=== PATIENT | male | born 1965 | race Caucasian/White ===

== ENCOUNTER 2023-11-05 05:14 | Inpatient (IN) | payer OTHER, SELFPAY ==
[2023-10-30 08:36] VITALS: BMI 31.1
[2023-10-30 09:08] LABS: % Basophils 0.5 % (0-2); % Eosinophils 7.8 % (0-6); % Immature Granulocytes 0.4 % (0-0.5); % Lymphocytes 27.4 % (20.5-51.1); % Monocytes 7.5 % (1.7-9.3); % Neutrophils 56.4 % (42.2-75.2); Absolute Eosinophils 0.4 10^3/uL (0-0.7); Absolute Lymphocytes 1.5 10^3/uL (1.2-3.4); Absolute Monocytes 0.4 10^3/uL (0.1-0.6); Absolute Neutrophils 3.2 10^3/uL (1.4-6.5); Hematocrit 38.2 % (39.0-52.0); Hemoglobin 12.9 g/dL (13.0-18.0); Mean Corp Hgb Conc. 33.8 g/dL (33.0-37.0); Mean Corpuscular Hgb 25.9 pg (27.0-31.0); Mean Corpuscular Volume 76.7 fL (80.0-94.0); Mean Platelet Volume 9.5 fL (7.4-10.4); Nucleated Red Blood Cells % 0 % (-); Platelet Count 274 10^3/uL (130-400); Red Blood Cell Count 4.98 10^6/uL (4.70-6.10); Red Cell Dist. Width 12.2 % (11.5-14.5); White Blood Cell Count 5.6 10^3/uL (4.8-10.8)
[2023-10-30 09:17] LABS: INR 0.98; PT 12.9 Sec (11.4-14.6)
[2023-10-30 09:18] LABS: APTT 30.5 Sec (23.4-35.0)
[2023-10-30 09:40] LABS: Urine Albumin Negative (Neg - Trace); Urine Bilirubin Negative (Negative); Urine Character Clear (Clear); Urine Color Straw; Urine Glucose Negative (Negative); Urine Ketone Negative (Negative); Urine Leukocyte Negative (Negative); Urine Nitrite Negative (Negative); Urine Occult Blood Negative (Negative); Urine Specific Gravity 1.005 (<1.030); Urine Urobilinogen Negative (Neg - 1+); Urine pH 6.5 (5.0-9.0)
[2023-10-30 11:11] LABS: Glycohemoglobin (HgbA1c) 5.7 % (4.0-5.6)
[2023-10-30 11:16] LABS: ALT (SGPT) 30 U/L (0-50); AST (SGOT) 25 U/L (17-59); Albumin 4.6 g/dl (3.5-5.0); Alkaline Phosphatase 65 U/L (38-126); Blood Urea Nitrogen 13 mg/dl (9-20); Calcium 9.7 mg/dl (8.4-10.2); Carbon Dioxide 31 mmol/L (22-30); Chloride 101 mmol/L (98-107); Direct Bilirubin 0.2 mg/dl (0.0-0.4); Estimated Creatinine Clearance 85 ml/min; Glucose 85 mg/dl (70-99); Potassium 4.4 mmol/L (3.5-5.1); Sodium 143 mmol/L (135-145); Total Bilirubin 0.5 mg/dl (0.2-1.3); Total Protein 7.1 g/dl (6.3-8.2); eGFR > 60.00
--- NOTE | 2023-10-30 11:20 | CM ---
CM following for DC planning needs.
CM met w/ patient and spouse during pre-admission testing for planned CABG next wk.
Patient resides w/ spouse and 12 yo son in a private split level home w/ approx. 14 steps to enter living area.
Pt. is functionally indep. w/ ADLs without any assisted device. Pt. works full-time, drives.
Pt. has Rx plan and uses [facility] in [facility].
Reviewed pre and post op routines.
Soap, shower instructions, and Cardiac Surgery booklet provided.
Reviewed post op restrictions to include flying, driving, lifting and sternal precautions.
Discussed post op MD appointments, Cardiac Rehab and visit from CT Transitional Care RN/patient agreeable to this.
Plan is for CABG 11/04.
Anticipated DC plan is for home w/ CT Transitional Care RN.
CM to follow.
[2023-11-05] VITALS (13 sets, daily range): BP systolic 95–155; BP diastolic 56–97; BMI 30.6
[2023-11-05] MEDS: LOPRESSOR 25 MG PO (05:37)
[2023-11-05] MEDS: BACTROBAN 2% OINTMENT 1 APPLIC NASAL ×2 (05:37→20:18)
[2023-11-05] MEDS: MAGNESIUM OXIDE 500 MG PO (05:37)
[2023-11-05] MEDS: PROTONIX 40 MG PO (05:37)
--- NOTE | 2023-11-05 06:12 | W.CVOR.SURPR ---
CVOR Surgeon Immed Pre Op
-
I have examined this patient prior to performance of the scheduled procedure.
The patient's condition is unchanged from the time of the dictated/written History and
Physical and the patient is able to undergo the scheduled procedure.
CABG + CLAUS Clip
[2023-11-05 07:33] LABS: Urine Albumin Negative (Neg - Trace); Urine Bilirubin Negative (Negative); Urine Character Clear (Clear); Urine Color Yellow; Urine Glucose Negative (Negative); Urine Ketone Negative (Negative); Urine Leukocyte Negative (Negative); Urine Nitrite Negative (Negative); Urine Occult Blood Negative (Negative); Urine Specific Gravity 1.015 (<1.030); Urine Urobilinogen Negative (Neg - 1+)
[2023-11-05 07:35] LABS: ACT+ - POC 96 Seconds (82-134)
--- NOTE | 2023-11-05 09:25 | CM ---
Patient in OR today for CABG.
Antic. DC to home w/ CT Transitional Care RN.
CM to follow for DC planning needs .
[2023-11-05 09:52] LABS: ACT+ - POC 634 Seconds (82-134)
[2023-11-05 10:13] LABS: B.E. - POC 0.3 mmol/L; Glucose - POC 98 mg/dl (65-99); HCO3 - POC 25 mmol/L (21-29); Hematocrit - POC 36 % PCV (42-52); Hemodilution- POC No; Hemoglobin Calculated - POC 12.1; Ionized Calcium - POC 1.23 mmol/L (1.12-1.27); O2 Saturation %Calculated-POC 98.5 5 (92-96); PCO2 - POC 41 mmHg (35-45); PO2 - POC 116 mmHg (80-100); POC Comment PRE; Potassium - POC 3.8 mmol/L (3.6-5.0); Sodium - POC 143 mmol/L (135-145)
[2023-11-05 10:22] LABS: ACT+ - POC 463 Seconds (82-134)
[2023-11-05 10:47] LABS: ACT+ - POC 511 Seconds (82-134)
[2023-11-05 10:56] LABS: B.E. - POC 4.1 mmol/L; Glucose - POC 111 mg/dl (65-99); HCO3 - POC 29 mmol/L (21-29); Hematocrit - POC 26 % PCV (42-52); Hemodilution- POC Yes; Hemoglobin Calculated - POC 8.9; Ionized Calcium - POC 1.01 mmol/L (1.12-1.27); PCO2 - POC 46 mmHg (35-45); PO2 - POC 457 mmHg (80-100); POC Comment CPB; Potassium - POC 5.6 mmol/L (3.6-5.0); Sodium - POC 138 mmol/L (135-145); pH - POC 7.41 (7.35-7.45)
[2023-11-05 11:30] LABS: B.E. - POC 1.7 mmol/L; Glucose - POC 172 mg/dl (65-99); HCO3 - POC 27 mmol/L (21-29); Hematocrit - POC 27 % PCV (42-52); Hemodilution- POC Yes; Ionized Calcium - POC 1.03 mmol/L (1.12-1.27); O2 Saturation %Calculated-POC 98.4 5 (92-96); PCO2 - POC 42 mmHg (35-45); PO2 - POC 111 mmHg (80-100); POC Comment CPB; Potassium - POC 6.2 mmol/L (3.6-5.0); Sodium - POC 137 mmol/L (135-145); pH - POC 7.41 (7.35-7.45)
[2023-11-05 11:38] LABS: ACT+ - POC 460 Seconds (82-134)
[2023-11-05 11:56] LABS: B.E. - POC 1.8 mmol/L; Glucose - POC 145 mg/dl (65-99); HCO3 - POC 27 mmol/L (21-29); Hematocrit - POC 32 % PCV (42-52); Hemodilution- POC Yes; Hemoglobin Calculated - POC 10.7; O2 Saturation %Calculated-POC 99.8 5 (92-96); PCO2 - POC 45 mmHg (35-45); PO2 - POC 236 mmHg (80-100); POC Comment WARM; Potassium - POC 5.2 mmol/L (3.6-5.0); Sodium - POC 141 mmol/L (135-145); pH - POC 7.39 (7.35-7.45)
[2023-11-05 11:59] LABS: ACT+ - POC 104 Seconds (82-134)
[2023-11-05 12:02] LABS: B.E. - POC -0.7 mmol/L; Glucose - POC 133 mg/dl (65-99); HCO3 - POC 24 mmol/L (21-29); Hematocrit - POC 29 % PCV (42-52); Hemodilution- POC Yes; Ionized Calcium - POC 1.29 mmol/L (1.12-1.27); O2 Saturation %Calculated-POC 99.8 5 (92-96); PCO2 - POC 41 mmHg (35-45); PO2 - POC 253 mmHg (80-100); POC Comment POST; Potassium - POC 4.2 mmol/L (3.6-5.0); Sodium - POC 143 mmol/L (135-145); pH - POC 7.38 (7.35-7.45)
--- NOTE | 2023-11-05 12:32 | W.PN.CT.SURG ---
Addendum entered and electronically signed by Edmund Delgado MD 11/05/23 12:58:
Implant: AtriCure CLAUS Clip, 35mm, SN [id number]
Original Note:
CT Surgery Operative Note
-
CARDIAC SURGERY OPERATIVE REPORT
Preoperative Diagnosis: Multivessel Coronary Artery Disease with proximal LAD Involvement and LIDDING MACHINE OPERATOR to the RCA
Postoperative Diagnosis: Same
Procedure(s) Performed:
1. Standard sternotomy with aortic cannulation
2. Coronary artery bypass grafting x 4 (In situ MADERA to LAD, Ao to RSVG to high diagonal, Ao to RSVG to largest OM, Ao to left radial to distal RCA)
3. Endoscopic vein harvesting of RLE vein and the L radial artery
4. Transesophageal echocardiography
5. Placement temporary ventricular pacing wire
6. Left atrial appendage exclusion, 35 mm clip
Date of Surgery: 11/05/2023
Comorbidities:
1. Multivessel coronary artery disease involving the proximal LAD with a LIDDING MACHINE OPERATOR lesion to the RCA
2. Exertional angina in the setting of known CAD
3. Asthma
4. Anxiety/depression
5. Hyperlipidemia
6. Hypertension
7. BPH
8. Shingles
Attending Surgeon: Edmund Delgado MD, MS
Assistants: Oliver Butler MD (PGY 2) and Sommer French PA-C (present and necessary to neurosurgical physician assistant, endoscopic vein harvest, retraction, suction, exposure, suture management, and wound closure under my direction), Alyssa Sosa PA-C (Endo radial harvest)
Anesthesiology: Chris Durbin MD and Kristen Blake CRNA
Scrub and Circulating RNs: Katerina Menjivar, FLAVIO, Koby Wilcox RN
Sales Associate: Blade Whitley CCP
Anesthesia: GETA
EBL: per perfusion records
Products: None
CPB Time: 101 minutes
Aortic Cross Clamp Time: 112 minutes
Indication(s) for Procedures: This is a 58-year-old male who likely had an TN 7 years ago where he developed chest pain. More recently has been experiencing exertional chest discomfort without shortness of breath. He deftly notices that his
symptoms have progressed over the last year. Left heart cath demonstrated significant multivessel coronary disease involving a LIDDING MACHINE OPERATOR lesion to the RCA and proximal LAD disease as well as proximal circumflex disease. Due to his young age, multi
arterial grafting was offered as well as total revascularization.
Conduit(s) Quality:
MADERA -excellent/skeletonized, excellent visual flow with removal of the bulldog clamp
Left radial -excellent/good blood flow with test dosing of antegrade using an Angiocath
RSVG -excellent/uniform with minimal varicosities however there were multiple branches
Target(s) Quality:
dRCA -good/large sized vessel accommodating a 2.0 stent, was able to identify a lumen of the distal RCA, radial score was grafted to this target test dosing antegrade using a 16-gauge Angiocath was performed flowing at approximately 50 to 60 cc a
minute at a pressure of 80 mmHg. Flow probe assessment demonstrated a mean flow 40 mmHg with an excellent pulsatility index.
OM -good/approximate 1.5 to 1.75 mm target, good flow in the vein but test dosing of antegrade at approximately 45 to 50 cc a minute at a pressure of 80 mmHg
Diagonal -excellent, good sized target with excellent flow with test dose of antegrade of approximate 50 to 55 cc a minute at a pressure of 80 mmHg. Flow probe assessment demonstrated a mean flow in the 20s with a low pulsatility index
LAD -good to average/surprising the smallest target of the 4, and 1.5 mm probe was used to assess the direction of the [place] vessel which headed down towards the apex and wraps around. There was good visual flow in the LAD territory upon removal
of the bulldog clamp. The midportion of the LAD was entirely buried into the fat and myocardium. Therefore, grafting of the MADERA was done to the distal LAD. There was a good mean flow and flow probe assessment and low pulsatility index.
Findings: Left regular ejection fraction preoperatively was normal with no regional wall motion abnormalities. Following surgery his EF remained the same at 60% with no new regional wall motion abnormalities. There was mild central mitral valve
insufficiency with inclusion of the case which was not present preoperatively but this is likely secondary to his pump run. The MADERA was harvested in a skeletonized fashion. The left radial artery was harvested in the Endo fashion as was the vein.
Following bypass grafting, test dose cardioplegia was given down each distal and confirmed patency and hemostasis. Each distal was probed both proximally and distally to confirm disease and patency, respectively. The left atrial appendage was
verified to be free of any thrombus or debris preoperatively and found to be totally occlusive after application of a 35mm clip flush to the base. No inotropes were required, no blood products was given., He regained sinus rhythm after removal of
the cross-clamp.
Description of Procedure: The patient was taken to the operating room. Their identity and procedure to be performed were verified and they were positioned supine on the operating table. Induction via general anesthesia with endotracheal intubation
was performed and central venous access and arterial monitoring were inserted. A preoperative transesophageal echocardiogram was performed to assess cardiac function and valvular function. The patient was then prepped and draped from chin to feet in
a sterile fashion. A preoperative time-out was performed with all members of the team present. A midline chest incision was performed along with median sternotomy. Simultaneous endoscopic access of the right lower extremity for saphenous vein and
left radial artery harvest was obtained along with administration of an initial 5,000 units of IV heparin. A RulTract sternal retractor was positioned to exposure the left internal mammary bed. The mammary was harvested and found to have good flow.
A bulldog clamp was applied to the distal end of the mammary after dividing it. It was wrapped in a papaverine soaked RayTec and replaced back into the left hemithorax. The RulTract was exchanged for a median sternal retractor. The innominate vein
was isolated. Full heparinization was given (a total of 55,000 units). We created a pericardial well. The aortic cannulation site was chosen where it was soft, pliable, and free of calcium. Cannulation was performed with an arterial cannula in the
ascending aorta and a triple-stage venous cannula through the right atrial appendage. The arterial cannula line had an appropriate bounce and correlating pressures with test dosing. Next, a root vent/antegrade cannula was inserted into the ascending
aorta. The ACT was confirmed to be over 400 and retrograde autologous priming was performed before commencing cardiopulmonary bypass. The pulmonary artery was away from the aorta to facilitate a clamp site. The aortic cross-clamp was
placed after decreasing the flow on the bypass and mean arterial pressure. Initially even after giving significant amount of cardioplegia, the heart did not arrest reassessment of the situation revealed that the aortic cannula was still perfusing
the root and so the clamp was removed and the aortic cannula tip was repositioned more distally into the arch and the cross-clamp was reapplied after lowering the flows. This time, A total of 1.2L initial dose of antegrade Del-Nido cardioplegia
solution was given and planned for re-dosing every 75 minutes as necessary. There was rapid electro-mechanical arrest of the heart at 300 cc of cardioplegia. The left ventricle was observed for distention on echocardiogram and manual palpation. Cold
slush was placed into a sponge and topically on the RV while we systemically cooled to 34 degrees centigrade. Once the cardioplegia was completed, the heart was medialized and the left atrial pannus was visualized and sized to a 35 mm clip which
was applied flush to the base.
I positioned the heart to expose the distal right coronary. A tulalip blade was used to expose the coronary and perform the arteriotomy. Coronary Velasquez scissors were used to enlarge the incision. The left radial artery conduit was trimmed and beveled
to an appropriate size. The distal anastomosis was performed using 7-0 prolene in an end-to-side fashion. Antegrade cardioplegia was administered into the graft using a 16-gauge Angiocath. Appropriate hemostasis and flow were confirmed. The graft
was measured for length to the aorta and cut. A suitable site on the largest obtuse marginal was chosen. We dissected and prepared the distal target in a similar fashion. An end-to-side anastomosis was created with a 7-0 prolene. Antegrade
cardioplegia was administered into the graft. Appropriate hemostasis and flow were confirmed. The graft was measured for length to the aorta and cut. Next the diagonal coronary was identified and prepared in a similar fashion. The vein was beveled
accordingly and a small coronary arteriotomy was created and enlarged with Velasquez scissors. An end-to-side anastomosis was created with 7-0 Prolene in a running fashion. Test dose of antegrade demonstrated excellent hemostasis and flow. A suitable
target on the distal left anterior descending was identified. We dissected and prepared the distal target in a similar fashion. We retrieved the MADERA from the chest and created a pericardial opening while being cognizant of the phrenic nerve to
facilitate the course of the mammary. The distal end of the mammary was prepped and beveled to size. We verified orientation and length of the EBEN and found brisk flow. An end-to-side anastomosis was created with a 9-0 prolene. We temporarily
released the bulldog clamp on the mammary to inspect flow. Perfusion to the LAD territory was visualized and hemostasis was confirmed. The bull clamp was replaced on the mammary. The heart was filled and the root was distended with antegrade
cardioplegia to make final assessment of graft length and orientation. We created 3 aortotomies using a #11 blade then a 4.0mm aortic punch. The proximal anastomoses were created in an end-to-side fashion using 6-0 prolene and 7-0 Prolene for the
artery conduit. At the the same time, we re-warmed to 36.5 degrees centigrade. The bulldog clamp was removed from the mammary. Temporary bipolar ventricular pacing wires were placed on the base of the right ventricle. The patient was placed in a
Trendelenburg position and flows on bypass were lowered. The aortic cross clamp was removed and flows were slowly brought back up. A 30-gauge needle was used to de-air the vein grafts. All bypass grafts were inspected and were free from kinking or
twisting. The distal and proximal anastomoses appeared hemostatic. Once transesophageal echocardiography appeared satisfactory for de-airing, the flows were temporarily lowered for root vent removal. After verifying acceptable parameters, we
initiated weaning from cardiopulmonary bypass. Once we were off cardiopulmonary bypass, the venous cannula was clamped and removed. A test dose of protamine was administered and the patient was monitored for any adverse reaction before resuming
protamine. Once half of the protamine dose was delivered, pump suckers were turned off and the systolic blood pressure was lowered for aortic decannulation. The aortic cannula was removed and pursestrings were tied down. All cannulation sites were
oversewn with a 4-0 prolene. The mammary bed was inspected and hemostasis was confirmed. Once the mediastinum was hemostatic, 19Fr Giuliano drain was placed in the left pleural cavity and two 24Fr Giuliano drains were placed within the pericardium. The
sternum was approximated with 4 #7 single and 3 #8 double stainless steel wires. Fascia was approximated with #1 vicryl suture. The subcutaneous, dermis and epidermis were closed in layers in a running fashion. The skin wound was cleansed and
dressed.
All instrument, sponge, and needle counts were confirmed to be correct x 2 at the end of the operation. The patient was transferred to the cardiac intensive care unit in critical but stable condition.
I, Dr. Edmund Delgado, was present, scrubbed for, and performed all critical elements of this procedure.
Edmund Delgado MD, MS
Cardiothoracic Surgeon
[facility]
This operative dictation was created using the [employer] dictation system. Please excuse any grammatical, typographical, or 'sound alike' errors
[2023-11-05] MEDS: TYLENOL PO ×2 (12:37→22:14)
[2023-11-05] MEDS: NOVOLOG FLEXPEN SC ×2 (12:37→14:40)
[2023-11-05] MEDS: NEURONTIN PO ×3 (12:37→22:14)
--- NOTE | 2023-11-05 12:44 | W.PN.UPDATE ---
Update Note
Progress Note Update
IV fluids: 1500
U.O.:� 200
UF:� 1200
Blood:� None
Wires:� Ventricular
Inotropes:� None
Pressors:� Levo
Sedatives:� Precedex
�
NEURO: sedated on precedex, pupils +Xmm B/L
RESP: #8OT @24cm> 16/500/60/5. Lungs clear B/L. 2 mediastinal (0cc on arrival) and pleural (0c on arrival) chest tubes to -20cm suction. Sanguineous drainage
CV: RRR +S1, S2, no S3, no�rub, no murmur. Dermabond to median sternotomy. RIJ w/Slicc
ABD: round, soft, no BS
EXT: no edema, +2/4 DP pulses B/L, no femoral bruit, LLE DARVIN wrap intact; right radial A-line intact
: Apula with clear yellow urine
�
A/P: POD #0 s/p Coronary artery bypass grafting x 4 (In situ MADERA to LAD, Ao to RSVG to high diagonal, Ao to RSVG to largest OM, Ao to left radial to distal RCA)
MAYE: EF�60% with no new RWMA
- wean and extubate
- Monitor CT and urine output
- Follow up labs and CXR
- Wean levophed for maps >65
- Will start ASA tonight
- D/t radial harvest will continue cardene infusion and transition to norvasc on POD #1
- EKG pending and will send to cards
- Cards consulted
�
# acute surgical blood loss anemia-expected
- trend CBC
�
#Hyperglycemia
- insulin infusion x 24h
�
# Hyperlipidemia
- resume�statin when tolerating PO
--- NOTE | 2023-11-05 13:00 | PTCARENOTE ---
Addendum entered by Mable Henrandez RN 11/05/23 19:02:
+Rub
Original Note:
Pt received from CVOR. Pt intubated and sedated. RAAS -5. Unresponsive. POX 98%. 8.0 ETT 23 cm at the lip. SIMV 60% 16 500 5/5. Not overbreathing the vent at this time. Left pleural chest tube to -20cm suction draining red fluid. Mediastinal chest
tubes x2 y-sited to 1 atrium to -20cm suction draining red fluid. No air leaks, tidaling, or crepitus noted. Lungs clear anteriorly. NSR on tele with rates in the 60s. BP supported with levophed. CVP 12. Right radial amanuel correlating with cuff BP.
Right radial, left ulnar, and bilateral DP pulses palpable. No edema noted. Epicardial v-wire set to back up and thresholds completed. 50//2. Abdomen soft, round, nontender. Hypoactive BS. Paula catheter intact draining adequate amounts of clear
yellow urine. Sternal incision approximated with skin glue, ADAM. Left radial harvest site covered with DARVIN-CDI. Right groin puncture site approximated with skin glue, ADAM. Right SVG harvest site (knee) approximated with skin glue and covered with
DARVIN-CDI. Right radial amanuel intact. Right IJ cordis and slight intact with CVP transducing. All lines flushed, leveled, and zeroed. Right AC 18g PIV intact. Post-op EKG, labs, and CXR completed.
[2023-11-05 13:01] LABS: Glucose - Point of Care 101 mg/dl (70-99)
[2023-11-05 13:18] LABS: Mixed Venous O2 Saturation 79.3 %
[2023-11-05 13:22] LABS: B.E. -0.5 mmol/L; HCO3 25.4 mmol/L (21-28); Ionized Calcium 1.23 mMOL/L (1.15-1.33); O2 Saturation % 98.8 % (94-98); PCO2 46 mmHg (35-48); PO2 116 mmHg (83-108); Potassium 4.3 mMOL/L (3.5-5.1); Sodium 137 mMOL/L (136-145); pH 7.35 (7.35-7.45)
[2023-11-05 13:23] LABS: Hematocrit 31.5 % (39.0-52.0); Hemoglobin 10.7 g/dL (13.0-18.0); Platelet Count 235 10^3/uL (130-400)
[2023-11-05 13:28] LABS: INR 1.29; PT 16.2 Sec (11.4-14.6)
[2023-11-05 13:29] LABS: APTT 28.7 Sec (23.4-35.0)
[2023-11-05] MEDS: ANCEF 10 IV ×2 (13:30)
[2023-11-05] MEDS: NSS 500 IV (13:30)
--- NOTE | 2023-11-05 13:30 | PTCARENOTE ---
CXR obtained. Pt awakened. Able to follow commands to wiggle toes, squeeze hands, nod head yes/no appropriately. Shakes his head 'no' to pain. Precedex d/c. RT at bedside to place pt on cpap trial and wean fio2 to 40%. pt tolerating. POX 91%.
[2023-11-05] MEDS: LR 250 IV (13:31)
[2023-11-05] MEDS: CARDENE 200 IV (13:31)
[2023-11-05 13:42] LABS: Blood Urea Nitrogen 14 mg/dl (9-20); Estimated Creatinine Clearance 103 ml/min; Glucose 99 mg/dl (70-99); Magnesium 2.8 mg/dl (1.6-2.3)
[2023-11-05 14:06] LABS: Glucose - Point of Care 81 mg/dl (70-99)
--- NOTE | 2023-11-05 14:27 | CON.INTV ---
Consultation
Consultation Request
Date/Time Consultation Requested: 11/05/2023
Date/Time Consultation Performed: 11/05/2023
Requesting Provider: Dr. Delgado
Performing Provider: Dr. Isac Marcos
Reason for Consultation: Status post coronary artery bypass
Medical History
-
History of Present Illness:
58-year-old man with history of multivessel coronary artery disease and stable angina. Normal LVEF on latest echocardiogram. Found to have be candidate for revascularization. Admitted on 11/05/2023, surgery underwent on 11/05/[address] Delgado.
In the ICU, on mechanical ventilation, sedated.
Unable to provide history. Records reviewed.
Chest tube in place without significant relief.
Past Medical History
Past Medical History: Other (See assessment and plan)
Social History
Tobacco: Former Smoker (Quit smoking 09/1999)
Alcohol: Occasional
Employment: Employed
Family History
Family History: Reviewed & Not Pertinent
Allergies / Home Medications
Allergies
Allergy/AdvReac Type Severity Reaction Status Date / Time
animal dander Allergy chest Verified 10/28/23 11:57
tightness/sneezing
house dust [House Dust] Allergy chest Verified 11/05/23 05:33
tightness/sneezing
mold Allergy congestion Verified 11/05/23 05:33
pollen extracts Allergy congestion Verified 10/28/23 11:57
Home Medications
�Medication �Instructions �Recorded �Confirmed �Last Taken �Type
acetaminophen 325 mg tablet 650 mg PO Q4H PRN pain 10/28/23 11/05/23 10/31/23 History
albuterol sulfate 90 mcg/actuation 1 inh inhalation PRN PRN sob 10/28/23 11/05/23 10/22/23 History
aerosol inhaler
aspirin 81 mg tablet,delayed 81 mg PO DAILY 10/28/23 11/05/23 11/04/23 08:00 History
release
atorvastatin 10 mg tablet 10 mg PO DAILY 10/28/23 11/05/23 11/04/23 08:00 History
bupropion HCl 150 mg 24 hr tablet, 150 mg PO DAILY 10/28/23 11/05/23 11/04/23 08:00 History
extended release
docusate sodium 100 mg capsule 100 mg PO DAILY 10/28/23 11/05/23 11/04/23 08:00 History
(Colace)
esomeprazole magnesium 20 mg 20 mg PO DAILY 10/28/23 11/05/23 11/04/23 08:00 History
capsule,delayed release
fluticasone propionate 50 1 spray intranasal DAILY PRN sob 10/28/23 11/05/23 08/09/23 History
mcg/actuation nasal
spray,suspension
ipratropium 0.5 mg-albuterol 3 mg 3 ml inhalation QID PRN sob 10/28/23 11/05/23 10/16/23 History
(2.5 mg base)/3 mL nebulization
soln
melatonin 10 mg-thean 1 tab PO HS PRN sleep 10/28/23 11/05/23 10/22/23 History
[id number]
tablet,immed-ext rel (Sleep3)
Review of Systems
-
Unable to Obtain full review of systems at this time due to: Patient Intubation
Vitals / Labs / Diagnostic Testing
Vital Signs
Temp Pulse Resp BP Pulse Ox
97.8 F 71 15 108/64 94
11/05/23 14:00 11/05/23 14:00 11/05/23 14:00 11/05/23 14:00 11/05/23 14:00
Lab Data
11/05/23 12:56
Laboratory Results
11/05/23 11/05/23
12:56 12:57
PT 16.2 H
INR 1.29
APTT 28.7
pH 7.35
pCO2 46
pO2 116 H
HCO3 25.4
O2 Delivery Level
Diagnostic Testing:
Physical Exam
-
HEENT: Normocephalic and Other (ET tube in place without secretion)
Cardiovascular: S1/S2
Respiratory: Clear, Non-Labored Respirations, Other (Chest tube in place without air leak or excessive dry) and Other (Sternotomy, covered. Intact)
GI: Soft and Non Distended
Neurology: Other (Sedated on mechanical ventilator)
Skin: Warm
General: Comfortable
Assessment
-
Status post coronary artery bypass graft via sternotomy: 11/05/[address] Delgado
Postoperative mechanical ventilation
Postoperative anemia
Assessment and plan:
History of multivessel coronary artery disease
History of asthma-not on daily inhalers
Anxiety/depression
Hyperlipidemia
Hypertension
BPH
Past history of shingles
Assessment and plan:
He is doing well postop-currently on mechanical ventilation and appears comfortable.
ABG reviewed:Adequate oxygenation ventilation
Continue SIMV mode with no change
Spontaneous breathing trial per protocol once sedation wears off.
Anemia noted-no evidence of acute bleeding
Follow H&H serially
Hemodynamics -currently off vasopressors.
Follow hemodynamics.
Adequate urinary output. Normal renal function.
Chest tube with no excessive drainage-no air leak.
Chest x-ray reviewed: With no pneumothorax or fluid collections.
Remain nothing by mouth
Head of the bed elevation
Glycemic control per protocol
DVT prophylaxis when safe from the surgical perspective.
Critical care statement: A total of 32 minutes of critical care time was provided for this patient today. This includes management of unstable vital signs, evaluation of the patient at bedside, reviewing the patient's pertinent medical records
including ventilator settings, arterial blood gases, radiographs, microbiology, laboratory evaluations and discussion with primary team, critical care nursing, and respiratory therapy.
[2023-11-05 14:29] LABS: B.E. -3.3 mmol/L; O2 Saturation % 95.7 % (94-98); PCO2 51 mmHg (35-48); PO2 79 mmHg (83-108); pH 7.28 (7.35-7.45)
--- NOTE | 2023-11-05 14:45 | PTCARENOTE ---
CPAP ABG resulted. CT [facility]EL[facility] notified. Orders to keep pt on CPAP for 30 more minutes and increase peep to 7. RT notified and at bedside to increase peep. Pt tolerating. Pt bathed with CHG wipes and turned from side to side. No significant dumps from
chest tubes. Family at bedside.
[2023-11-05 15:02] LABS: Glucose - Point of Care 114 mg/dl (70-99)
--- NOTE | 2023-11-05 15:13 | W.PN.CD ---
Addendum entered and electronically signed by Vic Brower MD 11/05/23 16:04:
I saw and examined the patient.
The COWLMAN's note was reviewed and I agree with the note.
Stable postop. remains in sinus rhythm. No pressors. Patient is on Cardene
-Wean from vent as per protocol.
Original Note:
Today's Communication / Plan
-
Close post-op monitoring and care with weaning of drips and vent as tolerated per CT surgery/[facility] protocol
Impression / Plan
-
Assessment/plan: 58 y/o male (follows with Dr. Greene) with CAD, asthma, and dyslipidemia who is now s/p CABG with Dr. Delgado.
CAD:
-s/p coronary artery bypass grafting x 4 (In situ MADERA to LAD, Ao to RSVG to high diagonal, Ao to RSVG to largest OM, Ao to left radial to distal RCA), CLAUS clip, Dr. Delgado 11/05/23
-CT's, nieves, pacer wire in place
-intubated/ventilated
-on Cardene due to radial harvest
-MAYE showed normal LVEF
-post-op EKG and tele stable in SR
-ASA, statin, BB
Dyslipidemia:
-continue statin and OP follow-up
Asthma:
-on inhaler therapy
-stable without wheezing to exam
Physical Exam
Vital Signs/Labs
Vital Signs
Temp Pulse Resp BP Pulse Ox
99.2 F 82 12 107/68 96
11/05/23 15:00 11/05/23 15:05 11/05/23 15:05 11/05/23 15:00 11/05/23 15:05
11/04/23 11/05/23 11/06/23
06:59 06:59 06:59
Actual Weight 96.8 kg
11/05/23 12:56
PT 16.2 Sec (11.4-14.6) H 11/05/23 12:56
INR 1.29 11/05/23 12:56
APTT 28.7 Sec (23.4-35.0) 11/05/23 12:56
Magnesium 2.8 mg/dl (1.6-2.3) H 11/05/23 12:56
Physical Exam
Constitutional: No acute distress
Cardiovascular: Rhythm & rate is regular
Respiratory: Lungs clear to auscul. and Other (intubated/ventilated)
Other: Skin (midsternal incision intact)
Data Reviewed
-
Date of Service: November 05, 2023
EKG: Tracing Personally Visualized and interpreted (NSR) and Other (SR)
[2023-11-05 15:24] LABS: B.E. -2.3 mmol/L; HCO3 24.2 mmol/L (21-28); Ionized Calcium 1.16 mMOL/L (1.15-1.33); O2 Saturation % 94.5 % (94-98); PCO2 48 mmHg (35-48); PO2 75 mmHg (83-108); Potassium 4.3 mMOL/L (3.5-5.1); pH 7.31 (7.35-7.45)
[2023-11-05] MEDS: PACERONE PO ×2 (15:24→22:13)
--- NOTE | 2023-11-05 15:32 | PTCARENOTE ---
Per CT MARINE ANIMAL TRAINER, pt extubated to 6L NC by RT. Pt tolerated POX 96%. Pt able to state name and . Drowsy but oriented x4. Denies nausea and pain. IS completed 1000ml achieved.
--- NOTE | 2023-11-05 15:43 | RESPNOTE ---
pt extubated at 1532 to 6l nasal cannula. 02 sats of 95% noted. IS done by nurse
[2023-11-05] MEDS: CALCIUM CHLORIDE 10% SYRINGE 50 MG IV (15:45)
[2023-11-05] MEDS: CALCIUM CHLORIDE 10% SYRINGE 50 ML IV (15:45)
[2023-11-05] MEDS: SODIUM BICARBONATE 50 MEQ IV (15:45)
[2023-11-05 15:53] LABS: Glucose - Point of Care 119 mg/dl (70-99)
[2023-11-05 16:52] LABS: Glucose - Point of Care 114 mg/dl (70-99)
[2023-11-05 17:00] LABS: HCO3 28.2 mmol/L (21-28); O2 Saturation % 96.8 % (94-98); PCO2 50 mmHg (35-48); PO2 82 mmHg (83-108); pH 7.36 (7.35-7.45)
--- NOTE | 2023-11-05 17:00 | PTCARENOTE ---
Pt reassessed. Pt resting comfortably. Pt drowsy, but oriented x4. Pt denies pain, shortness of breath, and nausea. All lines remain intact. CT x3 output WNL. BP supported with levophed. Cardene infusing for radial graft per CT TELECASTING ENGINEER. Insulin gtt per
Critical Care Glycemic Protocol. Paula draining adequate amounts of clear yellow urine. POX 93% on 6L NC.
[2023-11-05 17:01] LABS: Hematocrit 33.5 % (39.0-52.0); Hemoglobin 11.2 g/dL (13.0-18.0); Platelet Count 267 10^3/uL (130-400)
[2023-11-05] MEDS: ZOFRAN 4 MG IV (17:55)
[2023-11-05] MEDS: ANCEF 5 IV (17:56)
[2023-11-05] MEDS: LOW STRENGTH ASPIRIN 81 MG PO (17:58)
[2023-11-05 18:04] LABS: Glucose - Point of Care 94 mg/dl (70-99)
[2023-11-05] MEDS: OFIRMEV 100 IV (18:30)
[2023-11-05 19:14] LABS: Glucose - Point of Care 137 mg/dl (70-99)
[2023-11-05] MEDS: SENOKOT-S 1 TABLET PO (20:16)
[2023-11-05] MEDS: REGLAN 10 MG IV (20:22)
[2023-11-05 21:06] LABS: Glucose - Point of Care 105 mg/dl (70-99)
--- NOTE | 2023-11-05 21:09 | PTCARENOTE ---
Addendum entered by Rachelle Pink RN 11/06/23 00:18:
Glycemic protocol followed and Cardene infusing as ordered for left radial graft site.
Original Note:
Assumed care of pt from randy RN. Pt AAOx3. Following commands appropriately. JUNE. Pt SR on the tele monitor. HR 70s. +Rub. Temporary epicardial v-wire intact and set to VVI 50/10/2. BP 100-110's/60-70s. CVP ~9-15. Bilateral DP pulses palpable.
Right radial and Left ulnar pulse palpable. Pt on 6 L NC. POX 92-95%. Mediastinal CTx2 and Left pleural CT to -20 suction, no airleak noted, and output WNL. Lung sounds clear. Deep breathing and IS encouraged. Abdomen soft/nontender. Hypoactive BS.
Pt c/o nausea. CTPA at bedside. 1x dose of Reglan ordered - see MAY. Paula catheter CDI and draining yellow urine. Sternal incision approximated and FORENSIC ARTIST. Right groin puncture site CDI and FORENSIC ARTIST. Left radial graft site intact and wrapped in DARVIN. Right
knee SVG site intact and wrapped in DARVIN. Right IJ cordis w/ slick intact. Right radial a-line intact. Right AC 18 gauge intact. All lines leveled, zeroed, and flushed. Pt repositioned in bed. See worklist for full nursing assessment and
interventions. Call matta within reach.
[2023-11-05 22:20] LABS: B.E. 0.4 mmol/L; Ionized Calcium 1.23 mMOL/L (1.15-1.33); O2 Saturation % 97.5 % (94-98); PCO2 45 mmHg (35-48); PO2 81 mmHg (83-108); Potassium 4.6 mMOL/L (3.5-5.1); pH 7.37 (7.35-7.45)
[2023-11-05 23:02] LABS: Glucose - Point of Care 116 mg/dl (70-99)
[2023-11-06] VITALS (21 sets, daily range): BP systolic 103–149; BP diastolic 70–93; BMI 31.2
--- NOTE | 2023-11-06 00:14 | PTCARENOTE ---
No acute changes in assessment. Pt remains SR on the tele monitor. HR 70s. Temporary epicardial v-wire intact and connected to the box - settings unchanged from previous. BP stable. CVP 11-14. Pt on 2 L NC. POX 92-96%. CT assessment unchanged from
previous. Paula catheter intact and draining yellow urine. All surgical sites stable. Right IJ cordis w/ SLICC and right radial a-line maintained. All lines leveled, zeroed, and flushed. Glycemic protocol followed. Cardene infusing for left radial
graft site. Pt repositioned in bed. Pt tolerating ice chips. Call matta within reach.
[2023-11-06 01:13] LABS: Glucose - Point of Care 113 mg/dl (70-99)
[2023-11-06] MEDS: ANCEF 5 IV ×2 (01:15→10:53)
[2023-11-06] MEDS: DILAUDID 0.25 MG IV ×4 (01:15→21:35)
[2023-11-06 03:24] LABS: Glucose - Point of Care 110 mg/dl (70-99)
[2023-11-06 03:42] LABS: Hematocrit 32.5 % (39.0-52.0); Hemoglobin 10.9 g/dL (13.0-18.0); Mean Corp Hgb Conc. 33.5 g/dL (33.0-37.0); Mean Corpuscular Hgb 26.7 pg (27.0-31.0); Mean Corpuscular Volume 79.5 fL (80.0-94.0); Mean Platelet Volume 9.7 fL (7.4-10.4); Platelet Count 252 10^3/uL (130-400); Red Blood Cell Count 4.09 10^6/uL (4.70-6.10); Red Cell Dist. Width 12.6 % (11.5-14.5); White Blood Cell Count 14.1 10^3/uL (4.8-10.8)
[2023-11-06 03:52] LABS: Blood Urea Nitrogen 24 mg/dl (9-20); Carbon Dioxide 26 mmol/L (22-30); Chloride 108 mmol/L (98-107); Estimated Creatinine Clearance 93 ml/min; Glucose 121 mg/dl (70-99); Magnesium 2.1 mg/dl (1.6-2.3); Potassium 4.5 mmol/L (3.5-5.1); Sodium 142 mmol/L (135-145); eGFR > 60.00
--- NOTE | 2023-11-06 04:00 | PTCARENOTE ---
Pt reassessed. Remains SR on the tele monitor. HR 70s. Temporary epicardial v-wires intact. BP stable. CVP 9-13. Pt on 6 L NC. POX 90-95%. CT assessment unchanged. A-line and SLICC maintained. All lines leveled, zeroed, and flushed. Paula catheter
intact and draining yellow urine. All surgical sites stable. Glycemic protocol followed. Cardene infusing. Labs drawn and sent. EKG obtained. Call matta within reach.
--- NOTE | 2023-11-06 04:46 | W.PN.CT ---
Today's Communication / Plan
-
-pod #1
-no issues overnight
-drips: Cardene 1 (for radial graft), Insulin
-CT output: 2 meds 150/280, L pleur 30/75 in 12/24 hrs
-deline
-d/c insluin
-d/c Paula
-transition from Cardene to Norvasc for radial graft. Gave Norvasc around 5 am and dcd Cardene an hour later
-current meds (ASA, Plavix, Norvasc, Lipitor, Lopressor, Amio, Protonix)
-encourage IS, OOB
Assessment / Plan
-
- Mv-CAD - s/p CABG x4 (In situ MADERA to LAD, Ao to RSVG to high diagonal, Ao to RSVG to largest OM, Ao to left radial to distal RCA); LAAE (35 mm clip) on 11/05/[address] Delgado, pod #1
- Intraop MYAE: LVEF pre and post 60%, no wma. The CLAUS was verified to be free of any thrombus or debris preoperatively and found to be totally occlusive after application of a 35mm clip flush to the base.
- Multivessel coronary artery disease involving the proximal LAD with a CONCRETE PLACEMENT EQUIPMENT OPERATOR lesion to the RCA
- Likely [place] 7 years ago
- Asthma
- Anxiety/depression
- Mild sleep apnea
- Hyperlipidemia
- Hypertension
- Class 1 obesity (BMI 30)
- BPH
- Shingles
- GERD
- R sciatic pain
- OA
- R hand trigger finger
- Former smoker
- 3mm lung nodule on CT
- Acute postop blood loss anemia- stable, no transfusion
- Acute postop atelectasis
Discussed patient care with: Nursing and Care Team
Subjective
Procedure
- s/p CABG x4 (In situ MADERA to LAD, Ao to RSVG to high diagonal, Ao to RSVG to largest OM, Ao to left radial to distal RCA); LAAE (35 mm clip) on 11/05/[address] Delgado
-
Date of Service: November 06, 2023
Objective Data
-
PT 16.2 Sec (11.4-14.6) H 11/05/23 12:56
INR 1.29 11/05/23 12:56
APTT 28.7 Sec (23.4-35.0) 11/05/23 12:56
Vital Signs
Vital Signs
Temp Pulse Resp BP Pulse Ox
99.9 F 75 18 117/74 94
11/06/23 01:00 11/06/23 01:10 11/06/23 01:10 11/06/23 01:00 11/06/23 01:10
CT Intake/Output/Weight
11/05/23 11/05/23 11/06/23
06:59 18:59 06:59
Intake Total 581.26 / 770.86 189.6 / 770.86
Output Total 645 / 1190 545 / 1190
Balance -63.74 / -419.14 -355.4 / -419.14
SaO2: 94
Physical Exam
-
General: Awake and AOx3
Cardiovascular: Regular rate & rhythm, No Murmurs and Rub
Respiratory: Decreased Breath Sounds
Sternum: Stable
Incision: Clean, Dry and Intact
Extremities: Other (trace edema b/l, 2+ DPs b/l)
Abdomen: soft,nontender, nondistended, + bowel sounds
Data Reviewed
-
Lab Results: Results Reviewed
Medications: Active Meds Reviewed
Chest X-Ray: Report Reviewed and Image Reviewed
ECG: Report Reviewed and Image Reviewed
[2023-11-06] MEDS: NORVASC 2.5 MG PO (04:57)
[2023-11-06 04:58] LABS: Glucose - Point of Care 110 mg/dl (70-99)
--- NOTE | 2023-11-06 05:30 | PTCARENOTE ---
Pt SLICC and a-line dc'd per order. Norvasc given for radial graft. Per CTPA turn off Cardene 1 hour after Norvasc administration.
[2023-11-06] MEDS: TYLENOL 1000 MG PO ×3 (06:40→21:35)
[2023-11-06 07:22] LABS: Glucose - Point of Care 149 mg/dl (70-99)
--- NOTE | 2023-11-06 07:30 | PTCARENOTE ---
Resumed care of patient. Walking rounds completed with previous RN. Pt assessed while he was sitting in the chair. Pt alert and oriented x4. Rates sternal pain 4/10-states it is tolerable. Denies nausea. JUNE with equal strength throughout. NSR on
tele with rates in the 70s-80s. BP stable 118/75. +Rub. Epicardial v-wire to back up 50/10/2. No pacing noted. Right radial and Left ulnar and bilateral DP pulses palpable. +1 generalized edema noted. POX 94% on 4L NC. Lung diminished in the bases.
No cough noted. IS [id number] achieved. Left pleural chest tube to -20cm suction draining red fluid. mediastinal chest tubes x2 y-sited to 1 atrium to -20cm suction draining red fluid. no air leaks, tidaling, crepitus noted. Abdomen soft,
round, nontender. Hypoactive BS. Pt reports passing gas. DTV since nieves removal. Sternal incision approximated with skin glue, ADAM. Right groin puncture site approximated with skin glue, ADAM. Right SVG harvest approximated, covered with DARVIN-CDI.
Left radial harvest site approximated, DARVIN-CDI. Right IJ cordis intact with NSS KVO infusing. Right AC 18g PIV intact infusing insulin per Critical Care Glycemic Protocol. See MAR for medication administration. See worklist for complete nursing
assessment. Plan of care reviewed and patient in agreement.
--- NOTE | 2023-11-06 07:35 | W.PN.ANS.POP ---
Anesthesia Post Operative
- Anesthesia Post Op Note
Vital Signs Stable-See Nursing Note: Yes
Airway Patent: Yes
Adequate Pain Control: Yes
Change in Mental Status: No
Current Postoperative Nausea & Vomiting: No
Anesthesia Complications: No
General Anesthetic Recall: No
Unplanned Admission: No
Post Op Hydration Adequate: Yes
[2023-11-06] MEDS: PLAVIX 75 MG PO (07:39)
[2023-11-06] MEDS: PROTONIX 40 MG PO (07:39)
[2023-11-06] MEDS: NEURONTIN 100 MG PO ×3 (07:39→21:35)
[2023-11-06] MEDS: WELLBUTRIN XL (24 hour extended release) 150 MG PO (07:39)
[2023-11-06] MEDS: LOW STRENGTH ASPIRIN 81 MG PO (07:39)
[2023-11-06] MEDS: LIDOCAINE 4% PATCH 1 PATCH TOPICAL (07:39)
[2023-11-06] MEDS: BACTROBAN 2% OINTMENT 1 APPLIC NASAL ×2 (07:40→20:12)
[2023-11-06] MEDS: NSS IV (07:40)
[2023-11-06] MEDS: PACERONE 200 MG PO ×3 (07:40→21:35)
[2023-11-06] MEDS: LOPRESSOR 12.5 MG PO ×2 (07:40→20:11)
[2023-11-06] MEDS: MAGNESIUM OXIDE 500 MG PO ×2 (07:43→20:11)
[2023-11-06] MEDS: LIPITOR 10 MG PO (07:43)
[2023-11-06] MEDS: SENOKOT-S 1 TABLET PO ×2 (07:43→20:11)
[2023-11-06] MEDS: NOVOLOG FLEXPEN 4 UNITS SC (07:55)
[2023-11-06] MEDS: LIPITOR PO (08:51)
[2023-11-06 09:07] LABS: Glucose - Point of Care 121 mg/dl (70-99)
[2023-11-06 10:02] LABS: Glucose - Point of Care 104 mg/dl (70-99)
--- NOTE | 2023-11-06 10:45 | PTCARENOTE ---
Pt ambulated in the saravia 30'. Tolerated. Assisted back to bed. Left pleural chest tube d/c per orders. Pt tolerated. Pt resting in bed at this time.
[2023-11-06] MEDS: LASIX 40 MG IV (10:53)
[2023-11-06 10:59] LABS: Glucose - Point of Care 114 mg/dl (70-99)
--- NOTE | 2023-11-06 11:53 | CM ---
CM following for DC planning needs.
Met w/ patient and family at bedside.
Patient is POD#1, feels well.
Anticipated DC plan is for home w/ CT Transitional Care RN.
CM to cont. to follow.
--- NOTE | 2023-11-06 12:00 | PTCARENOTE ---
Pt reassessed. VSS. NSR with rates in the 70s-80s. BP stable 125/79. POX 93% on 2L NC. CT output WNL. Pt voided 575mL deon urine in the urinal. +gas. No acute changes from previous assessment. Pt sitting in the chair with family at bedside.
[2023-11-06 12:09] LABS: Glucose - Point of Care 87 mg/dl (70-99)
[2023-11-06] MEDS: NOVOLOG FLEXPEN SC (12:33)
[2023-11-06] MEDS: ROXICODONE 5 MG PO (12:55)
--- NOTE | 2023-11-06 14:08 | W.PN.INTV ---
Today's Communication / Plan
Recommendations
Continue postoperative care
Diuresis
Chest tube output will be followed
Daily chest x-ray
Analgesia with narcotics, watch respiratory status closely
Increase activity as able
Advance diet
Sign off
Assessment
-
Status post coronary artery bypass graft via sternotomy: 11/05/[address] Delgado
Postoperative mechanical ventilation
Postoperative anemia
Assessment and plan:
History of multivessel coronary artery disease
History of asthma-not on daily inhalers
Anxiety/depression
Hyperlipidemia
Hypertension
BPH
Past history of shingles
Assessment and plan:
Postoperative day 1
Doing well
Increase activity per protocol
Incentive spirometry encouraged
Analgesia with narcotics, watch respiratory status closely.
Anemia noted-no evidence of acute bleeding
Follow H&H serially
Hemodynamics -currently off vasopressors.
Urinary output and renal function normal.
Diuresis per cardiology and primary team
Chest tube with no excessive drainage-no air leak.
Chest x-ray reviewed 11/06/2023: With no pneumothorax or fluid collections.
Advance diet as tolerated
Head of the bed elevation
Glycemic control per protocol
DVT prophylaxis when safe from the surgical perspective.
Patient has been transferred to telemetry. Critical care team will sign off.
Subjective Dataa
Subjective Data
Date of Service:
Date of Service: November 06, 2023
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
Subjective:
Now extubated
No acute complaints
On the right supplemental oxygen
Pain is controlled
Denies shortness of breath at rest
Review of Systems
Cardiopulmonary: Dyspnea (n) and Cough (n)
GI: Abdominal Pain (n) and Nausea (n)
Objective Data
Data Reviewed
Vital Signs / I&O / Oxygen:
Vital Signs
Temp Pulse Resp BP Pulse Ox
99.1 F 80 16 125/79 99
11/06/23 12:00 11/06/23 12:30 11/06/23 09:00 11/06/23 12:03 11/06/23 12:03
Intake and Output
11/05/23 11/06/23 11/07/23
06:59 06:59 06:59
Intake Total 893.36 / 908.36 799.6 / 799.6
Output Total 1605 / 1605 695 / 695
Balance -711.64 / -696.64 104.6 / 104.6
SaO2 [CPAP/PSV] 94
SaO2 [SIMV] 98
SaO2 99
Nasal Cannula flow liters per 2
minute
Physical Exam
General: Comfortable
HEENT: Normocephalic
Cardiovascular: S1-S2
Respiratory: Clear and Chest Tube (No air leak or excessive drainage)
GI: Soft
Neurology: Awake, Alert and AO x 3
Skin: Good Color and Other (Incision is intact/dressed)
Labs/Micro/Reports
Lab Data
11/06/23 03:27
11/06/23 03:27
Laboratory Results
11/05/23 11/05/23 11/05/23
14:17 15:18 16:48
pH 7.28 L 7.31 L 7.36
pCO2 51 H 48 50 H
pO2 79 L 75 L 82 L
HCO3 24.0 24.2 28.2 H
O2 Delivery Level
11/05/23
22:12
pH 7.37
pCO2 45
pO2 81 L
HCO3 26.0
O2 Delivery Level
[2023-11-06] MEDS: FERRLECIT 110 MG IV (14:18)
[2023-11-06] MEDS: MYLICON 80 MG PO (14:21)
--- NOTE | 2023-11-06 16:00 | PTCARENOTE ---
Pt reassessed. C/o gas discomfort, see MAY. Assisted to bathroom to urinate deon urine in the urinal. Assisted back to bed to rest. VSS. CT output WNL. Pt rates sternal pain 07/17-see MAY.
[2023-11-06] MEDS: TORADOL 15 MG IV (16:49)
[2023-11-06] MEDS: MUCINEX 600 MG PO (20:17)
--- NOTE | 2023-11-06 21:30 | PTCARENOTE ---
Assumed care of pt from dayshift RN. Walking rounds completed. Pt AAOx3. JUNE. SR on the tele monitor. HR 80s. Temporary epicardial v-wires intact and set to 50/10/2. +Rub. Bilateral DP pulses palpable. Left ulnar and right radial pulse palpable. +1
generalized edema. BP stable. Pt on 2 L NC. POX 91-92%. Lung sounds diminished. Deep breathing and IS encouraged. Mediastinal CT x2 to -20 suction, no airleak noted at this time, and output WNL. Abdomen soft/nontender. +BS. Pt voiding yellow urine
w/o issue. All surgical sites stable. Right IJ cordis and PIVx1 CDI. See MAR for pain medication administration. Pt assisted out of the chair and into the bed. Call matta within reach.
[2023-11-07] VITALS (15 sets, daily range): BP systolic 110–140; BP diastolic 63–80; PULSE 86; O2SAT 96; BMI 31.7
[2023-11-07] MEDS: TORADOL 15 MG IV (00:08)
--- NOTE | 2023-11-07 00:17 | PTCARENOTE ---
Pt reassessed. Remains SR on the monitor. HR 80s. BP stable. Pt on 4 L NC. POX 91-94%. Mediastinal CT assessment unchanged from previous. See MAR for pain medication administration. All surgical sites stable. Call matta within reach.
--- NOTE | 2023-11-07 03:52 | PTCARENOTE ---
Previous assessment unchanged. Pt SR on the tele monitor. HR 70s. Temporary epicardial v-wire intact. Settings unchanged. BP stable. Pt on 4 L NC. POX 91-94%. Mediastinal CT assessment unchanged. All surgical sites stable. Pt resting in bed at this
time. Labs drawn and sent. Call matta within reach.
[2023-11-07 04:16] LABS: Hematocrit 29.3 % (39.0-52.0); Hemoglobin 9.6 g/dL (13.0-18.0); Mean Corp Hgb Conc. 32.8 g/dL (33.0-37.0); Mean Corpuscular Hgb 26.2 pg (27.0-31.0); Mean Corpuscular Volume 80.1 fL (80.0-94.0); Platelet Count 199 10^3/uL (130-400); Red Blood Cell Count 3.66 10^6/uL (4.70-6.10); Red Cell Dist. Width 12.6 % (11.5-14.5); White Blood Cell Count 14.3 10^3/uL (4.8-10.8)
[2023-11-07 04:31] LABS: Blood Urea Nitrogen 38 mg/dl (9-20); Calcium 8.8 mg/dl (8.4-10.2); Carbon Dioxide 32 mmol/L (22-30); Chloride 99 mmol/L (98-107); Estimated Creatinine Clearance 78 ml/min; Glucose 122 mg/dl (70-99); Magnesium 2.3 mg/dl (1.6-2.3); Sodium 139 mmol/L (135-145); eGFR > 60.00
[2023-11-07] MEDS: TYLENOL 1000 MG PO ×3 (05:35→22:55)
--- NOTE | 2023-11-07 06:48 | W.PN.CT ---
Today's Communication / Plan
-
-pod #2
-no issues overnight
-CT output: 2 meds 135/305 in 12/24 hrs
-wt is up 8 lbs from preop - diurese
-Cr 1.2 today (1.1 preop)- follow
-current meds (ASA, Plavix, Norvasc for radial graft, Lipitor, Lopressor, Amio, Protonix)
-encourage IS, OOB
Assessment / Plan
-
- Mv-CAD - s/p CABG x4 (In situ MADERA to LAD, Ao to RSVG to high diagonal, Ao to RSVG to largest OM, Ao to left radial to distal RCA); LAAE (35 mm clip) on 11/05/[address] Delgado, pod #2
- Intraop MAYE: LVEF pre and post 60%, no wma. The CLAUS was verified to be free of any thrombus or debris preoperatively and found to be totally occlusive after application of a 35mm clip flush to the base.
- Multivessel coronary artery disease involving the proximal LAD with a NUT STEAMER lesion to the RCA
- Likely [place] 7 years ago
- Asthma
- Anxiety/depression
- Mild sleep apnea
- Hyperlipidemia
- Hypertension
- Class 1 obesity (BMI 30)
- BPH
- Shingles
- GERD
- R sciatic pain
- OA
- R hand trigger finger
- Former smoker
- 3mm lung nodule on CT
- Acute postop blood loss anemia- stable, no transfusion
- Acute postop atelectasis
Discussed patient care with: Nursing and Care Team
Subjective
Procedure
- s/p CABG x4 (In situ MADERA to LAD, Ao to RSVG to high diagonal, Ao to RSVG to largest OM, Ao to left radial to distal RCA); LAAE (35 mm clip) on 11/05/[address] Delgado
-
Date of Service: November 07, 2023
Objective Data
-
PT 16.2 Sec (11.4-14.6) H 11/05/23 12:56
INR 1.29 11/05/23 12:56
APTT 28.7 Sec (23.4-35.0) 11/05/23 12:56
Vital Signs
Vital Signs
Temp Pulse Resp BP Pulse Ox
99 F 87 16 132/74 91
11/07/23 00:04 11/07/23 00:04 11/07/23 00:04 11/07/23 00:04 11/07/23 00:04
CT Intake/Output/Weight
11/06/23 11/06/23 11/07/23
06:59 18:59 06:59
Intake Total 312.1 / 908.36 929.6 / 1249.6 320 / 1249.6
Output Total 960 / 1605 1005 / 1330 325 / 1330
Balance -647.9 / -696.64 -75.4 / -80.4 -5 / -80.4
SaO2: 91
Physical Exam
-
General: Awake and AOx3
Cardiovascular: Regular rate & rhythm, No Murmurs and Rub
Respiratory: Decreased Breath Sounds
Sternum: Stable
Incision: Clean, Dry and Dressing Intact
Extremities: Edema +1 (2+ DPs b/l)
Data Reviewed
-
Lab Results: Results Reviewed
Medications: Active Meds Reviewed
Chest X-Ray: Report Reviewed and Image Reviewed
ECG: Report Reviewed and Image Reviewed
--- NOTE | 2023-11-07 06:54 | W.PN.CD ---
Today's Communication / Plan
-
Furosemide 40 mg IV x1 and monitor.
Monitor H/H.
Transition to PO calcium channel bonita.
Impression / Plan
-
Assessment/Plan: 58 y/o male (follows with Dr. Greene) with CAD, asthma, and dyslipidemia who is now s/p CABG with Dr. Delgado.
#CAD
-Chronic, stable.
-S/P coronary artery bypass grafting x 4 (MADERA to LAD, SVG to high diagonal, SVG to largest OM, left radial to distal RCA), CLAUS clip, Dr. Delgado 11/05/23.
-Extubated yesterday.
-Not requiring any hemodynamic support.
-Encourage incentive spirometry/ambulation.
-Continue amiodarone.
-Change nicardipine to PO calcium channel bonita for radial artery patency.
-Monitor post operative anemia.
-Start furosemide 40 mg IV and monitor.
#Dyslipidemia
-Chronic, stable.
-Continue statin and OP follow-up.
#Asthma
-Chronic, stable.
-On inhaler therapy.
-Stable without wheezing to exam.
Subjective/Interval History:
Weight up 3.5 kg from baseline.
Hbg down to 9.6.
DATA:
Intraoperative MAYE, 11/05/2023:
CONCLUSIONS
Overall LVEF is approximately 60% with no RWMA.
Mild concentric left ventricular hypertrophy.
Normal diastolic function.
Mild aortic insufficiency.
No significant atheroma seen in any aortic segment.
POST OPERATIVE FINDINGS
The patient underwent a CABG on bypass. Postop rhythm remains sinus. RV and
LV function are normal. Overall LVEF is at least 60% with no new RWMA. Mild
central MR noted. Trace AI. TV and PV function appear normal. Aortic scan is
unchanged.
Physical Exam
Vital Signs/Labs
Vital Signs
Temp Pulse Resp BP Pulse Ox
36.9 C 75 16 110/71 94
11/07/23 03:45 11/07/23 03:45 11/07/23 03:45 11/07/23 03:45 11/07/23 03:45
11/05/23 11/06/23 11/07/23
11:59 11:59 11:59
Actual Weight 96.8 kg 98.5 kg 100.3 kg
11/07/23 03:47
11/07/23 03:47
PT 16.2 Sec (11.4-14.6) H 11/05/23 12:56
INR 1.29 11/05/23 12:56
APTT 28.7 Sec (23.4-35.0) 11/05/23 12:56
Magnesium 2.3 mg/dl (1.6-2.3) 11/07/23 03:47
Physical Exam
Constitutional: No acute distress and Comfortable
EENT: Anicteric and Moist mucous membranes
Cardiovascular: Rhythm & rate is regular, Pedal edema is absent, JVD pressure is normal, S1S2 is normal and Murmur/rub/gallop absent
Respiratory: Respiratory effort normal and Other (Decreased throughout.)
GI: Soft, Distention absent, Flat, Non tender and Normal bowel sounds
Neuro/Psych: AO x 3
Data Reviewed
-
Date of Service: November 07, 2023
Medical Decision Making: Reviewed Test Results, Independent Historian Assessment and Test Interpretation
EKG: Tracing Personally Visualized and interpreted and Report Reviewed by me
Echo: Report Reviewed by me
X-Ray/CT/US/MRI/NUC/PET: Image Personally Visualized and interpreted
Labs: Labs Reviewed by me
[2023-11-07] MEDS: WELLBUTRIN XL (24 hour extended release) 150 MG PO (09:14)
[2023-11-07] MEDS: LIPITOR 40 MG PO (09:14)
[2023-11-07] MEDS: NEURONTIN 100 MG PO ×3 (09:14→22:55)
[2023-11-07] MEDS: NORVASC 2.5 MG PO (09:14)
[2023-11-07] MEDS: MUCINEX 600 MG PO ×2 (09:15→20:00)
[2023-11-07] MEDS: MAGNESIUM OXIDE 500 MG PO ×2 (09:15→20:00)
[2023-11-07] MEDS: LIDOCAINE 4% PATCH 1 PATCH TOPICAL (09:15)
[2023-11-07] MEDS: SENOKOT-S 1 TABLET PO ×2 (09:15→20:00)
[2023-11-07] MEDS: LOPRESSOR 12.5 MG PO ×2 (09:15→20:00)
[2023-11-07] MEDS: PLAVIX 75 MG PO (09:15)
[2023-11-07] MEDS: LOW STRENGTH ASPIRIN 81 MG PO (09:15)
[2023-11-07] MEDS: DIAMOX 250 MG PO (09:15)
[2023-11-07] MEDS: PROTONIX 40 MG PO (09:15)
[2023-11-07] MEDS: BACTROBAN 2% OINTMENT 1 APPLIC NASAL ×2 (09:16→20:01)
--- NOTE | 2023-11-07 09:17 | W.PN.UPDATE ---
Update Note
Progress Note Update
No pacing since surgery. Site cleaned with CHG, suture clipped and bipolar V-wire removed without difficulty. Bedrest x 1 hour. VS q15min x 4
[2023-11-07] MEDS: PACERONE 200 MG PO ×3 (09:18→22:55)
[2023-11-07] MEDS: NSS 500 IV (09:18)
--- NOTE | 2023-11-07 09:54 | PTCARENOTE ---
assumed care of pt from previous shift RN, sinus rhythm on tele, VSS, + peripheral pulses. Pacing wire removed by CT MERCEDEZ, 1 hr of bedrest and frequent VS completed, minimal output from CTs. Instructed to removed tubes, pt tolerated well. Assisted
OOB to chair. +bs, tolerating PO intake, voids spontaneously. Surgical sites intact. Plan of care reviewed w the pt and questions encouraged.
[2023-11-07] MEDS: FERRLECIT 110 MG IV (14:20)
--- NOTE | 2023-11-07 14:21 | CM ---
CM following for DC planning needs.
Patient is POD#2 from CABG.
Antic. DC plan is for home w/ CT Transitional Care RN.
CM to follow for any additional needs that may arise.
--- NOTE | 2023-11-07 16:49 | PTCARENOTE ---
sinus rhythm, VSS, pt without complaint.
--- NOTE | 2023-11-07 20:51 | PTCARENOTE ---
Assumed care of patient at 1900. Pt is awake, alert, and oriented. No complaints of pain at this time. Pt remains SR with HR 80's BP 114/72 MAP 86. Pulses palpable. Pulse oximetry 95% on room air. Pt tolerating PO diet. Pt voiding without difficulty
in urinal. Midsternal incision approximated and ADAM. Right leg incision approximated and REPORT SPECIALIST. Left radial incision approximated and ADAM. Right IJ cordis in place with KVO. Pt ambulated in hallway with RN without difficulty. Now back in bed resting
with call matta within reach.
[2023-11-07] MEDS: DILAUDID 0.25 MG IV (23:00)
--- NOTE | 2023-11-07 23:32 | PTCARENOTE ---
No changes in assessment. Remains SR with HR 70's. BP 118/76 MAP 86. Pulse oximetry 91% on room air. Pt resting comfortably in bed.
[2023-11-08] VITALS (10 sets, daily range): BP systolic 97–131; BP diastolic 67–80; PULSE 74–85; O2SAT 97–98; BMI 31.4
[2023-11-08 02:48] LABS: Hematocrit 27.4 % (39.0-52.0); Hemoglobin 9.3 g/dL (13.0-18.0); Mean Corp Hgb Conc. 33.9 g/dL (33.0-37.0); Mean Corpuscular Hgb 25.9 pg (27.0-31.0); Mean Corpuscular Volume 76.3 fL (80.0-94.0); Mean Platelet Volume 9.8 fL (7.4-10.4); Platelet Count 229 10^3/uL (130-400); Red Blood Cell Count 3.59 10^6/uL (4.70-6.10); Red Cell Dist. Width 12.7 % (11.5-14.5); White Blood Cell Count 13.1 10^3/uL (4.8-10.8)
[2023-11-08 03:04] LABS: Blood Urea Nitrogen 25 mg/dl (9-20); Calcium 8.8 mg/dl (8.4-10.2); Carbon Dioxide 27 mmol/L (22-30); Chloride 103 mmol/L (98-107); Estimated Creatinine Clearance 78 ml/min; Glucose 110 mg/dl (70-99); Magnesium 2.2 mg/dl (1.6-2.3); Potassium 3.8 mmol/L (3.5-5.1); Sodium 138 mmol/L (135-145); eGFR > 60.00
--- NOTE | 2023-11-08 04:11 | PTCARENOTE ---
Morning labs collected and reviewed. Weight obtained on standing scale. Pt remains SR with HR 70's. BP 128/80 MAP 91. Pulse oximetry 94% on room air.
--- NOTE | 2023-11-08 04:35 | W.PN.CT ---
Today's Communication / Plan
-
-No major issues overnight. Hemodynamically and neurologically intact
-Off all drips
-Diuresed well yesterday, 24hr u/o 2400 mL
-Replete K, 3.8
-D/C Cordis
-Cont. current meds (ASA, Plavix, Norvasc for radial graft, Lipitor, Lopressor, Amio, Protonix)
-Encourage use of ID
-OOB into chair
-Home likely tomorrow
Assessment / Plan
-
- Mv-CAD - s/p CABG x4 (In situ MADERA to LAD, Ao to RSVG to high diagonal, Ao to RSVG to largest OM, Ao to left radial to distal RCA); LAAE (35 mm clip) on 11/05/[address] Delgado, pod #3
- Intraop MAYE: LVEF pre and post 60%, no wma. The CLAUS was verified to be free of any thrombus or debris preoperatively and found to be totally occlusive after application of a 35mm clip flush to the base.
- Multivessel coronary artery disease involving the proximal LAD with a INFORMATICS EDUCATOR lesion to the RCA
- Likely [place] 7 years ago
- Asthma
- Anxiety/depression
- Mild sleep apnea
- Hyperlipidemia
- Hypertension
- Class 1 obesity (BMI 30)
- Prediabetes (A1C 5.7)
- BPH
- Shingles
- GERD
- R sciatic pain
- OA
- R hand trigger finger
- Former smoker
- 3mm lung nodule on CT
- Acute postop blood loss anemia- stable, no transfusion
- Acute postop atelectasis
Discussed patient care with: Cardiology, Nursing, Respiratory Therapy, Pharmacy and Care Team
Subjective
Procedure
- s/p CABG x4 (In situ MADERA to LAD, Ao to RSVG to high diagonal, Ao to RSVG to largest OM, Ao to left radial to distal RCA); LAAE (35 mm clip) on 11/05/[address] Delgado
-
Date of Service: November 08, 2023
Pt c/o mild incisional pain, otherwise feels well
Objective Data
-
Lab Results
11/08/23 02:19
11/08/23 02:19
PT 16.2 Sec (11.4-14.6) H 11/05/23 12:56
INR 1.29 11/05/23 12:56
APTT 28.7 Sec (23.4-35.0) 11/05/23 12:56
Vital Signs
Vital Signs
Temp Pulse Resp BP Pulse Ox
99.5 F 71 16 128/80 94
11/08/23 02:25 11/08/23 04:00 11/08/23 02:25 11/08/23 02:12 11/08/23 02:25
CT Intake/Output/Weight
11/07/23 11/07/23 11/08/23
06:59 18:59 06:59
Intake Total 380 / 1309.6 130 / 210 80 / 210
Output Total 385 / 1390 1000 / 2400 1400 / 2400
Balance -5 / -80.4 -870 / -2190 -1320 / -2190
SaO2: 94 (RA)
Physical Exam
-
General: Awake, Oriented and AOx3
Cardiovascular: Regular rate & rhythm, No Murmurs, No Rub and No Gallop
Respiratory: Decreased Breath Sounds (at bases, otherwise clear)
Sternum: Stable
Incision: Clean, Dry, Intact and Dressing Intact
Extremities: Other (+trace edema)
Data Reviewed
-
Lab Results: Results Reviewed
Medications: Active Meds Reviewed
Chest X-Ray: Report Reviewed and Image Reviewed
ECG: Report Reviewed and Image Reviewed
[2023-11-08] MEDS: TYLENOL 1000 MG PO ×3 (05:30→20:57)
[2023-11-08] MEDS: KCL 40 MEQ PO (05:30)
--- NOTE | 2023-11-08 08:00 | PTCARENOTE ---
pt received from previous RN, oriented, OOB in chair. SR on the monitor, HR 70s. SBP 100s. palpable pulses, trace hand edema. pt on RA, 98% POX. lungs clear. IS encouraged. pt abdomen s/n, denies n/v. diet tolerated well. voids. sternal incision
ADAM. chest tube site c/d/i. R groin ADAM. L radial incision approximated, ADAM. R knee incision SURVEY INTERVIEWER, approximated. RIJ cordis maintained. PIV. see worklist for VS, I&O, and assessment.
[2023-11-08] MEDS: MAGNESIUM OXIDE 500 MG PO ×2 (08:24→20:57)
[2023-11-08] MEDS: PROTONIX 40 MG PO (08:24)
[2023-11-08] MEDS: MUCINEX 600 MG PO ×2 (08:24→20:57)
[2023-11-08] MEDS: LOPRESSOR 12.5 MG PO ×2 (08:24→20:56)
[2023-11-08] MEDS: NEURONTIN 100 MG PO ×3 (08:24→20:57)
[2023-11-08] MEDS: NORVASC 2.5 MG PO (08:24)
[2023-11-08] MEDS: PLAVIX 75 MG PO (08:24)
[2023-11-08] MEDS: WELLBUTRIN XL (24 hour extended release) 150 MG PO (08:24)
[2023-11-08] MEDS: LIPITOR 40 MG PO (08:24)
[2023-11-08] MEDS: SENOKOT-S 1 TABLET PO ×3 (08:24→20:57)
[2023-11-08] MEDS: PACERONE 200 MG PO ×3 (08:24→20:57)
[2023-11-08] MEDS: LOW STRENGTH ASPIRIN 81 MG PO (08:24)
[2023-11-08] MEDS: LIDOCAINE 4% PATCH 1 PATCH TOPICAL (08:25)
[2023-11-08] MEDS: BACTROBAN 2% OINTMENT 1 APPLIC NASAL ×2 (08:25→20:56)
[2023-11-08] MEDS: NSS IV (10:39)
[2023-11-08] MEDS: LASIX 40 MG PO (12:16)
--- NOTE | 2023-11-08 12:40 | PTCARENOTE ---
pt VSS, OOB in chair. at bedside. pt c/o intermittent 'clicking' in L back, PA aware. clear to auscultation, pt states will notify RN if clicking occurs again.
[2023-11-08] MEDS: FERRLECIT 110 MG IV (14:15)
--- NOTE | 2023-11-08 16:00 | PTCARENOTE ---
pt VSS, no changes in assessment. ambulated in hallway. placed back in bed. LARRY Kahn dc'd as ordered, dressing c/d/i.
--- NOTE | 2023-11-08 16:21 | W.PN.CD ---
Today's Communication / Plan
-
-Stable. Remains in sinus rhythm continue postop care as directed by CT surgery
Impression / Plan
-
Assessment/Plan: 58 y/o male (follows with Dr. Greene) with CAD, asthma, and dyslipidemia who is now s/p CABG with Dr. Delgado.
#CAD
-Chronic, stable.
-S/P coronary artery bypass grafting x 4 (MADERA to LAD, SVG to high diagonal, SVG to largest OM, left radial to distal RCA), CLAUS clip, Dr. Delgado 11/05/23.
-Stable. Remains in sinus rhythm continue postop care as directed by CT surgery
#Dyslipidemia
-Continue statin and OP follow-up.
#Asthma
-Chronic, stable.
-On inhaler therapy.
-Stable without wheezing to exam.
Subjective/Interval History:
Weight up 3.5 kg from baseline.
Hbg down to 9.6.
DATA:
Intraoperative MAYE, 11/05/2023:
CONCLUSIONS
Overall LVEF is approximately 60% with no RWMA.
Mild concentric left ventricular hypertrophy.
Normal diastolic function.
Mild aortic insufficiency.
No significant atheroma seen in any aortic segment.
POST OPERATIVE FINDINGS
The patient underwent a CABG on bypass. Postop rhythm remains sinus. RV and
LV function are normal. Overall LVEF is at least 60% with no new RWMA. Mild
central MR noted. Trace AI. TV and PV function appear normal. Aortic scan is
unchanged.
Physical Exam
Vital Signs/Labs
Vital Signs
Temp Pulse Resp BP Pulse Ox
98.4 F 81 16 97/68 98
11/08/23 15:54 11/08/23 15:33 11/08/23 15:54 11/08/23 15:33 11/08/23 15:54
11/07/23 11/08/23 11/09/23
06:59 06:59 06:59
Actual Weight 100.3 kg 99.2 kg
11/08/23 02:19
11/08/23 02:19
PT 16.2 Sec (11.4-14.6) H 11/05/23 12:56
INR 1.29 11/05/23 12:56
APTT 28.7 Sec (23.4-35.0) 11/05/23 12:56
Magnesium 2.2 mg/dl (1.6-2.3) 11/08/23 02:19
Physical Exam
Constitutional: No acute distress
EENT: Anicteric
Cardiovascular: Rhythm & rate is regular
Respiratory: Wheeze Absent and Rhonchi Absent
GI: Soft
Neuro/Psych: Alert
Data Reviewed
-
Date of Service: November 08, 2023
Medical Decision Making: Reviewed Test Results
Echo: Report Reviewed by me
Medical Tests (PFT, Pathology etc): Report Reviewed by me
Labs: Labs Reviewed by me
--- NOTE | 2023-11-08 20:25 | PTCARENOTE ---
Patient received from previous shift resting oob in chair, AAO x 3, states pain controlled at this time. NSR via cm, SaO2 @ 95% on RA. All procedural sites stable. Patient assisted to ambulate saravia approximately 125 feet, slight JO noted, settled
to chair. All procedural sites stable. Patient updated to plan of care for the evening, in agreement. See work list for full assessment and interventions performed.
[2023-11-08] MEDS: KCL 20 MEQ PO (22:53)
--- NOTE | 2023-11-08 23:07 | PTCARENOTE ---
Patient assisted to bathroom, voided. Settled back to bed, VS obtained. Assessment unchanged.
[2023-11-09 03:12] VITALS: BMI 31.4
[2023-11-09 04:13] VITALS: BP 139/75
--- NOTE | 2023-11-09 04:24 | PTCARENOTE ---
VS obtained, assessment stable. AM labs collected. Patient assisted oob to bathroom, settled back to bed.
--- NOTE | 2023-11-09 04:28 | W.PN.CT ---
Today's Communication / Plan
-
Plan
-No major issues overnight. Hemodynamically and neurologically intact
-Off all drips
-Diuresed well yesterday, 24hr u/o 3300 mL
-F/u 2-view cxr
-Cont. current meds (ASA, Plavix, Norvasc for radial graft, Lipitor, Lopressor, Amio, Protonix)
-Encourage use of IS
-OOB into chair/Ambulate
-Home today
Assessment / Plan
-
Assessment:
- Mv-CAD - s/p CABG x4 (In situ MADERA to LAD, Ao to RSVG to high diagonal, Ao to RSVG to largest OM, Ao to left radial to distal RCA); LAAE (35 mm clip) on 11/05/[address] Delgado, pod #4
- Intraop MAYE: LVEF pre and post 60%, no wma. The CLAUS was verified to be free of any thrombus or debris preoperatively and found to be totally occlusive after application of a 35mm clip flush to the base.
- Multivessel coronary artery disease involving the proximal LAD with a BAT[employer] TE[employer] REPA[employer]ER lesion to the RCA
- Likely [place] 7 years ago
- Asthma
- Anxiety/depression
- Mild sleep apnea
- Hyperlipidemia
- Hypertension
- Class 1 obesity (BMI 30)
- Prediabetes (A1C 5.7)
- BPH
- Shingles
- GERD
- R sciatic pain
- OA
- R hand trigger finger
- Former smoker
- 3mm lung nodule on CT
- Acute postop blood loss anemia- stable, no transfusion
- Acute postop atelectasis
- Acute postop hypovolemia with subsequent hypervolemia
Discussed patient care with: Cardiology, Nursing, Respiratory Therapy, Pharmacy and Care Team
Subjective
Procedure
- s/p CABG x4 (In situ MADERA to LAD, Ao to RSVG to high diagonal, Ao to RSVG to largest OM, Ao to left radial to distal RCA); LAAE (35 mm clip) on 11/05/[address] Delgado
-
Date of Service: November 09, 2023
Pt c/o mild incisional pain, otherwise feels well
Objective Data
-
PT 16.2 Sec (11.4-14.6) H 11/05/23 12:56
INR 1.29 11/05/23 12:56
APTT 28.7 Sec (23.4-35.0) 11/05/23 12:56
Vital Signs
Vital Signs
Temp Pulse Resp BP Pulse Ox
98.7 F 76 14 139/75 94
11/09/23 04:13 11/09/23 04:13 11/09/23 04:13 11/09/23 04:13 11/09/23 04:13
CT Intake/Output/Weight
11/08/23 11/08/23 11/09/23
06:59 18:59 06:59
Intake Total 120 / 250 130 / 380 250 / 380
Output Total 1850 / 2850 1100 / 2650 1550 / 2650
Balance -1730 / -2600 -970 / -2270 -1300 / -2270
SaO2: 94 (RA )
Physical Exam
-
General: Awake, Oriented and AOx3
Cardiovascular: Regular rate & rhythm, No Murmurs, No Rub and No Gallop
Respiratory: Decreased Breath Sounds (at bases, otherwise clear)
Sternum: Stable
Incision: Clean, Dry, Intact and Dressing Intact
Extremities: No Edema
Data Reviewed
-
Lab Results: Results Reviewed
Medications: Active Meds Reviewed
Chest X-Ray: Report Reviewed and Image Reviewed
ECG: Report Reviewed and Image Reviewed
[2023-11-09 04:30] LABS: Mean Corp Hgb Conc. 33.3 g/dL (33.0-37.0); Mean Corpuscular Hgb 26.2 pg (27.0-31.0); Mean Corpuscular Volume 78.7 fL (80.0-94.0); Mean Platelet Volume 9.5 fL (7.4-10.4); Platelet Count 208 10^3/uL (130-400); Red Blood Cell Count 3.43 10^6/uL (4.70-6.10); Red Cell Dist. Width 12.9 % (11.5-14.5)
[2023-11-09 04:54] LABS: Blood Urea Nitrogen 18 mg/dl (9-20); Calcium 8.5 mg/dl (8.4-10.2); Carbon Dioxide 25 mmol/L (22-30); Chloride 104 mmol/L (98-107); Estimated Creatinine Clearance 94 ml/min; Glucose 100 mg/dl (70-99); Magnesium 2.1 mg/dl (1.6-2.3); Sodium 138 mmol/L (135-145); eGFR > 60.00
[2023-11-09] MEDS: TYLENOL 1000 MG PO (06:25)
--- NOTE | 2023-11-09 08:00 | PTCARENOTE ---
pt received from previous RN, oriented, OOB in chair. SR on the monitor, HR 70s-80s. SBP 110s. palpable pulses. pt on RA, 97% POX. lungs clear. IS encouraged. pt abdomen s/n, denies n/v. diet tolerated well. voids. ambulates independently. sternal
incision ADAM. chest tube site c/d/i. R groin TICKET AGENT. L radial incision approximated, ADAM. R knee incision TICKET AGENT, approximated. PIV. see worklist for VS, I&O, and assessment.
[2023-11-09 08:22] VITALS: BP 113/70
[2023-11-09] MEDS: LOW STRENGTH ASPIRIN 81 MG PO (08:26)
[2023-11-09] MEDS: WELLBUTRIN XL (24 hour extended release) 150 MG PO (08:26)
[2023-11-09] MEDS: PLAVIX 75 MG PO (08:26)
[2023-11-09] MEDS: LIPITOR 40 MG PO (08:26)
[2023-11-09] MEDS: SENOKOT-S 1 TABLET PO (08:26)
[2023-11-09] MEDS: NEURONTIN 100 MG PO (08:26)
[2023-11-09] MEDS: PROTONIX 40 MG PO (08:26)
[2023-11-09] MEDS: PACERONE 200 MG PO (08:26)
[2023-11-09] MEDS: MAGNESIUM OXIDE 500 MG PO (08:26)
[2023-11-09] MEDS: MUCINEX 600 MG PO (08:26)
[2023-11-09] MEDS: BACTROBAN 2% OINTMENT 1 APPLIC NASAL (08:27)
[2023-11-09] MEDS: LOPRESSOR 12.5 MG PO (08:27)
[2023-11-09] MEDS: NORVASC 2.5 MG PO (08:27)
[2023-11-09] MEDS: LIDOCAINE 4% PATCH TOPICAL (08:27)
--- NOTE | 2023-11-09 10:37 | W.[place]-PDMP ---
[place]PD[place]
-
Checked the [place]- Prescription Drug Monitoring Program website, no red flags identified; safe to proceed with prescription.
[2023-11-09] MEDS: NSS IV (11:07)
[2023-11-09 12:44] VITALS: BP 112/82
--- NOTE | 2023-11-09 13:47 | PTCARENOTE ---
pt VSS, discharged home w/ . discharge instructions reviewed w/ patient and . home meds reviewed. questions answered. IV and tele dc'd. pt showered, dressed self. pt left via wheelchair w/ RN escort w/ all belongings.
--- NOTE | 2023-11-09 16:53 | W.DCSUMMARY ---
Discharge Summary
Discharge Data
Date of Admission: 11/05/23
Date of Discharge: 11/09/23
-
Pending Results: No
Hospital Course
Mr. Yeyo Dia is a 58-year-old male admitted electively to [facility] for coronary artery bypass grafting. He was admitted on the morning of 11/05/2023 where later that morning he was brought to the operating room where he underwent
coronary artery bypass grafting with 4 distal anastomoses. The left internal mammary artery was utilized to bypass the LAD. Separate saphenous vein grafts were placed to the first diagonal and obtuse marginal. The left radial artery was harvested
endoscopically and it was utilized to bypass the distal RCA. Also at this time the left atrial appendage was clipped with a 35mm clip. He tolerated the procedure well and was brought to the surgical intensive care unit where he was supported on
low-dose Levophed and Cardene. He was able to be extubated in the afternoon approximately 1600 on the day of surgery. He continued on a Cardene drip overnight and his first night in the intensive care unit was uneventful.
It should be noted patient did not receive any blood transfusions during surgery or postoperatively while at [facility].
Postoperative day #1 he was started on Norvasc and the Cardene drip was weaned off. The left pleural chest tube was removed. He was given a dose of IV Lasix and had good diuresis. Insulin drip was discontinued and he was transferred to telemetry.
Postoperative day 2 temporary pacing wires were removed. His chest tubes were removed. He was given a low-dose of Diamox along with Lasix and he had approximately 1 L urinary output. He was participating in cardiac rehab. He was gaining strength
and working towards discharge.
Postoperative day #3 again he received p.o. Lasix. His Cordis was discontinued. His weight was down approximately 3 pounds. Hemoglobin noted to be 9.3. O2 sat on room air was 94%.
Postoperative day #4 Mr. Dia was ambulating independently and his vital signs were he was afebrile his heart rate was 75 regular blood pressure 139/75 and his O2 sat was noted to be 94%. On room air. His urine output over past 24 hours was
approximately 2 L. His two-view x-ray at the time of discharge was essentially clear. His weight was noted to be 218 no change from day prior. His discharge labs are as follows hemoglobin 9.0, hematocrit 27, platelets 208, white blood cell count
9.0, BUN 18, creatinine 1.0 he was given a full set of discharge instructions and will be seen in our office after his arrival at home.
He will also be followed by our transitional care nurses after his arrival at home.
Discharge Plan
-
Patient Disposition: Home (Routine Discharge)
Discharge Diagnosis/Procedures: CABG/left atrial clip
Condition: Good
Diet: Low Fat, Low Cholesterol and Low Sodium
Activity: No strenuous activity
Driving Restrictions: Not until seen by your Dr
Bathing Restrictions: OK to Shower
Other Services: Cardiac Rehab
Specialty Instructions: Weigh Daily- Call MD for wt gain/loss 3 lbs overnight/5 lbs in 1 week
Activity Restrictions/Additional Instructions:
ACTIVITY:
-No strenuous activity: no heavy lifting, pushing, pulling anything over 15 pounds for one month
-continue to use stairs as tolerated
DRIVING RESTRICTIONS:
-No driving for one month or until approved by your surgeon
WOUND CARE:
-Shower daily. Use soap & water.
-No lotions, creams or powders on incision area.
DIET:
-continue a low fat/low cholesterol diet.
-IF you are diabetic, continue carb controlled diet.
CARDIAC REHAB:
-Please make appointment to start in 5-6 weeks with your local hospital program. (See Cardiac Rehabilitation Discharge Booklet).
SPECIALTY INSTRUCTIONS:
-Weigh yourself daily. Call your physician for any weight gain/loss of 3 lbs overnight or 5 lbs in one week.
-REPORT any clicking noise or uneven appearance of your sternum to your surgeon immediately.
-If you smoke, you are instructed to quit. The [place] smoking hotline phone number is [phone]
Referrals:
[facility] [Outside] - 12/17/23 9:30 am
(Cardiac Rehab Orientation appointment is on 12/17/2023 at 9:30 AM.
The Cardiac Rehab gym is located on the first floor of the [facility].)
Alicia Serra DO [Family Provider] -
Edmund Delgado MD [Active] - 12/11/23 1:30 pm
Additional Discharge Medication Instructions: atorvastatin changed to 40mg
esomeprazole changed to pantoprazole 40mg
Stop sleep3
Prescriptions:
New
atorvastatin 40 mg Tablet
40 mg PO DAILY Qty: 30 1RF
metoprolol tartrate 25 mg Tablet
12.5 mg PO Q12 Qty: 60 1RF
sennosides-docusate sodium 8.6-50 mg Tablet
1 tab PO TID Qty: 20 1RF
amlodipine 2.5 mg Tablet
2.5 mg PO DAILY Qty: 30 3RF
clopidogrel 75 mg Tablet
75 mg PO DAILY Qty: 30 0RF
pantoprazole 40 mg Tablet,Delayed Release (Dr/Ec)
40 mg PO DAILY Qty: 30 0RF
oxycodone 5 mg Tablet
5 mg PO Q6HPRN PRN (Reason: severe pain) Qty: 20 0RF
oxycodone 5 mg tablet
5 mg PO Q6HPRN PRN (Reason: severe pain) Qty: 20 0RF
Continued
acetaminophen 325 mg Tablet
650 mg PO Q4H PRN (Reason: pain)
ipratropium-albuterol 0.5 mg-3 mg(2.5 mg base)/3 mL Solution For Nebulization
3 ml INHALATION QID PRN (Reason: sob)
aspirin 81 mg Tablet,Delayed Release (Dr/Ec)
81 mg PO DAILY
docusate sodium [Colace] 100 mg Capsule
100 mg PO DAILY
albuterol sulfate 90 mcg/actuation Hfa Aerosol Inhaler
1 inh INHALATION PRN PRN (Reason: sob)
fluticasone propionate 50 mcg/actuation Maben,Suspension
1 spray INTRANASAL DAILY PRN (Reason: sob)
bupropion HCl 150 mg Tablet Extended Release 24 Hr
150 mg PO DAILY
Discontinued
atorvastatin 10 mg Tablet
10 mg PO DAILY
esomeprazole magnesium 20 mg Capsule,Delayed Release(Dr/Ec)
20 mg PO DAILY
Sleep3 10-200-50 mg Tablet,Ir,Delayed Rel,Biphasic
1 tab PO HS PRN (Reason: sleep)
Discharge Orders:
Discharge Patient (As Directed); Ordered 11/09/23
Ordered By: Td Azar
Care Plan Goals
Care Plan Goals:
Problem: Readiness for enhanced knowledge related to diagnosis and treatment plan
Goal: Understand your diagnosis and treatment plan needs, including medications if applicable.
Instructions: Know your diagnosis, underlying causes and treatment plan options, including medications if applicable. Consult with your health care team to learn about your diagnosis and treatment plan, including medications if applicable.
Discharge Date and Time
Discharge Date/Time: 11/09/23 13:30
Print Language: BELARUSIAN
== END 2023-11-09 13:30 | disposition home or self-care (01) | DRG 236 ==
LOC: CVICU 05:14
PROVIDERS: Anesthesiology; Clinical Nurse Specialist Acute Care; Physician Assistant Medical; ADMITTING PHYSICIAN Thoracic Surgery (Cardiothoracic Vascular Surgery); CONSULT PHYSICIAN Internal Medicine Critical Care Medicine; FAMILY PHYSICIAN Family Medicine
PROC: 02L70CK Occlusion of Left Atrial Appendage with Extraluminal Device, Open Approach (ICD-10-PCS; 2023-11-05)
PROC: 5A1221Z Performance of Cardiac Output, Continuous (ICD-10-PCS; 2023-11-05)
PROC: 06BP4ZZ Excision of Right Saphenous Vein, Percutaneous Endoscopic Approach (ICD-10-PCS; 2023-11-05)
PROC: 03BC4ZZ Excision of Left Radial Artery, Percutaneous Endoscopic Approach (ICD-10-PCS; 2023-11-05)
PROC: 021109W Bypass Coronary Artery, Two Arteries from Aorta with Autologous Venous Tissue, Open Approach (ICD-10-PCS; 2023-11-05)
PROC: B24BZZ4 Ultrasonography of Heart with Aorta, Transesophageal (ICD-10-PCS; 2023-11-05)
PROC: 02100Z9 Bypass Coronary Artery, One Artery from Left Internal Mammary, Open Approach (ICD-10-PCS; 2023-11-05)
PROC: 02100AW Bypass Coronary Artery, One Artery from Aorta with Autologous Arterial Tissue, Open Approach (ICD-10-PCS; 2023-11-05)
DX: I25.118 Atherosclerotic heart disease of native coronary artery with other forms of angina pectoris (principal); D62 Acute posthemorrhagic anemia; J98.11 Atelectasis; I25.82 Chronic total occlusion of coronary artery; J45.909 Unspecified asthma, uncomplicated; F32.A Depression, unspecified; F41.9 Anxiety disorder, unspecified; E78.5 Hyperlipidemia, unspecified; I10 Essential (primary) hypertension; N40.0 Benign prostatic hyperplasia without lower urinary tract symptoms; R73.9 Hyperglycemia, unspecified; E66.9 Obesity, unspecified; G47.30 Sleep apnea, unspecified; K21.9 Gastro-esophageal reflux disease without esophagitis; M19.90 Unspecified osteoarthritis, unspecified site; R91.1 Solitary pulmonary nodule; R73.03 Prediabetes; E86.1 Hypovolemia; E87.70 Fluid overload, unspecified; I34.0 Nonrheumatic mitral (valve) insufficiency; I25.2 Old myocardial infarction; Z68.31 Body mass index [BMI] 31.0-31.9, adult; Z79.82 Long term (current) use of aspirin; Z79.899 Other long term (current) drug therapy; Z87.891 Personal history of nicotine dependence
CPT/HCPCS: 36415; 71045; 71046; 80048; 80053; 81003; 82248; 82330; 82565; 82805; 82810; 82947; 82962; 83036; 83735; 84132; 84302; 84520; 85014; 85018; 85025; 85027; 85049; 85610; 85730; 86850; 86900; 86901; 86920; 87070; 93005; 93312; 93320; 93325; 93880; 94002; J2916; P9045

== ENCOUNTER 2024-01-07 08:49 | Outpatient (RCR) | payer OTHER, SELFPAY | END 2024-01-07 23:59 | disposition home or self-care (01) | LOC: CRHB 08:49 | PROVIDERS: ATTENDING PHYSICIAN Thoracic Surgery (Cardiothoracic Vascular Surgery) | DX: I25.10 Atherosclerotic heart disease of native coronary artery without angina pectoris (principal); Z95.1 Presence of aortocoronary bypass graft | CPT/HCPCS: 93797; 93798 ==

== ENCOUNTER 2024-01-26 08:44 | Outpatient (RCR) | payer OTHER, SELFPAY | END 2024-01-26 10:25 | disposition home or self-care (01) | LOC: CRHB 08:44 | PROVIDERS: ATTENDING PHYSICIAN Internal Medicine Cardiovascular Disease; FAMILY PHYSICIAN Family Medicine | DX: I25.10 Atherosclerotic heart disease of native coronary artery without angina pectoris (principal); Z95.1 Presence of aortocoronary bypass graft | CPT/HCPCS: 93797; 93798 ==

== ENCOUNTER → 2024-12-20 12:52 | Outpatient (REF) | payer OTHER, SELFPAY | LOC: EMG 12:52 | PROVIDERS: ATTENDING PHYSICIAN Psychiatry & Neurology Neurology | DX: M54.12 Radiculopathy, cervical region (principal); R20.0 Anesthesia of skin | CPT/HCPCS: 95886; 95909 ==